=== PATIENT | female | born 2000 | race Caucasian/White ===

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

== ENCOUNTER 2021-04-06 06:30 | Inpatient (IN) | payer MEDICAID, SELFPAY ==
[2021-04-06] VITALS (30 sets, daily range): BP systolic 120–150; BP diastolic 61–101; PULSE 82–116; RESP 18; TEMP 36.2–36.8; O2SAT 92–99; BMI 35.8
[2021-04-06 06:36] LABS: ROM Internal Control Test YES-OK TO RESULT pt. (Internal QC)
[2021-04-06 06:37] LABS: ROM Patient Test POSITIVE (Negative)
[2021-04-06] MEDS: Lactated Ringers 500 ML 999 ML IV (06:50)
[2021-04-06 07:13] LABS: Basophil# 0.05 X10^3/uL; Basophil% 0.3 % (0-1); Eosinophil# 0.21 X10^3/uL; Eosinophils% 1.4 % (0-5); Hematocrit 31.9 % (37-47); Hemoglobin 10.5 g/dL (12.0-15.0); Lymphocyte % 10.6 % (19-41); Mean Corp Hgb Conc 32.9 g/dL (32-36); Mean Corpuscular Hgb 29.8 pg (27.0-32.0); Mean Corpuscular Volume 90.6 fL (81-99); Monocyte# 1.14 X10^3/uL; Monocyte% 7.5 % (0-10); NRBC Flagged by Analyzer 0 % (0-5); Neutrophil # 11.98 X10^3/uL (2.7-7.7); Neutrophil % 79.4 % (47-70); Platelet Count 420 K/mm3 (150-450); RBC Distribution Width CV 12.9 % (11.6-14.6); RBC Distribution Width SD 42.1 fl (35.1-43.9); Red Blood Count 3.52 M/mm3 (4.2-5.4); White Blood Count 15.1 K/mm3 (4.4-11.0)
[2021-04-06 07:27] LABS: Bacteria 0 SEEN /hpf (None Seen); Mucous, Urine 0 SEEN /hpf (<or=2+)
[2021-04-06] MEDS: Lactated Ringers 1,000 ML 999 ML IV (07:29)
[2021-04-06 07:47] LABS: Amphetamine Urine VISTA NEGATIVE (<1000 ng/mL); Barbiturate Urine VISTA NEGATIVE (< 200 ng/mL); Benzodiazepine Urine VISTA NEGATIVE (< 200 ng/mL); Cocaine Urine VISTA NEGATIVE (< 300 ng/mL); Ecstacy Urine VISTA NEGATIVE (< 500 ng/mL); Methadone Urine VISTA NEGATIVE (< 300 ng/mL); PCP Urine VISTA NEGATIVE (< 25 ng/mL); THC Urine VISTA NEGATIVE (< 50 ng/mL); Vista UDS pH Range 6
[2021-04-06 07:50] LABS: Color, Urine Yellow (Yellow); Glucose, Dipstick Normal (Normal); Ketone-Dipstick Negative (Negative); Leukocyte Esterase-Dipstick 25 /ul (Negative); Nitrite-Dipstick Negative (Negative); Occult Blood-Urine 150 /ul (Negative); Protein-Dipstick Negative (Negative); Urine Bilirubin Dipstick Negative (Negative); Urine Clarity Sl. Cloudy (Clear); Urine Urobilinogen Normal (Normal)
[2021-04-06] MEDS: fentaNYL-bupivacaine (epidural) 100 ML BAG EPIDURAL (08:00)
[2021-04-06 08:10] LABS: White Blood Cells 0-5 SEEN /hpf (0-5)
[2021-04-06 08:11] LABS: Red Blood Cells-Urine 0-5 SEEN /hpf (0-5); Squamous Epithelial Cells - UA 0-5 SEEN /hpf (5-10)
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
[2021-04-06] MEDS: Oxytocin 30 units/NS 500 ml 30 UNITS/500 ML IV.SOLN 334 UNITS IV (08:32)
--- NOTE | 2021-04-06 08:37 | OP.PCM_ITS ---
Assessment & Plan (1) (spontaneous vaginal delivery): (2) 40 weeks gestation of : (3) Meconium in amniotic fluid: (4) Precipitous delivery: (5) Methamphetamine use: (6) Marijuana use: Maternal Data Information ELIJAH Calculator Estimated Delivery Date Method Current WG Current Estimate 04/05/21 Manual 40w 1d US complete d around 24 weeks gestation Final ELIJAH: 04/05/21 Gestational age: 40.1 Vaginal Delivery Maternal Presentation Maternal Presentation: Active Labor and Spontaneous Rupture of Membranes Maternal Presentation: Patient is a at 40.1 weeks gestation that presents with spontaneous rupture of membranes around 0200. Patient reports painful contractions starting around 0400. Positive movement.Patient has had very limited care. Operative Information Date of Procedure: 04/06/21 Pre-Operative Diagnosis: Term gestation, SROM, Active labor, GBS unknown, poor care Post-Operative Diagnosis: Meconium fluid, precipitous delivery, live female Type of Anesthesia: Epidural Estimated Blood Loss: 200 Time of Delivery: 08:28 Findings Description of Procedure: Patient quickly began feeling pressure upon arrival to unit. Forebag ruptured for thick meconium. Patient complete dilation and bearing down with contractions. head delivered with minimal maternal effort followed quickly by anterior then posterior shoulders and remainder of body. Infant placed on maternal abdomen and technical marketing engineer requested cord to be clamped and cut. attended to by technical marketing engineer and nursery nurse. began to cry and was able to remain skin to skin with patient. Pitocin IV was started for active management of the third stage of labor. Placenta delivered spontaneously and intact. Cord blood collected from 3 vessel cord. After inspection it was noted there were no vaginal or perineal lacerations. EBL 200 cc. APGARS 8/9. Infant and mother bonding at this time. Dr. Daley notified of delivery. Presentation: Vertex Amniotic Membrane Rupture Type: Spontaneous (SROM 0200 clear fluid- AROM forebag for thick meconium ) Time of Membrane Rupture: 0200- Amniotic Fluid Description: Thick meconium Placental Delivery Description: Spontaneous Placenta Disposition: [facility] Cord Vessel Description: 3 Vessels Cord Entanglement: None Infant A Gender: Female (1 minute): 8 (5 minute): 9 Delayed Cord Clamping: No Post Vaginal Delivery Medications Given After Delivery: IV Pitocin Episiotomy Description: None Laceration: None Complication Complications: None Admit VTE Documentation VTE Present on Admission: No
[2021-04-06 08:41] LABS: Rubella IgG Reactive (Nonreactive); Syphilis Antibodies Non-reactive
[2021-04-06 09:00] LABS: HIV - WCH Non-Reactive (Nonreactive); Hepatitis B Surface Antigen Non-Reactive (Nonreactive); Hepatitis C Antibody Non-Reactive (Nonreactive)
[2021-04-06 11:08] LABS: Chlamydia Trachomatis by PCR Negative (Negative); Neisserai gonorrhoeae by PCR Negative (Negative); Probe Check PASS; Sample Adequacy Control PASS; Specimen Processing Control PASS
--- NOTE | 2021-04-06 11:20 | NURSING ---
At 10:50, pt bladder again distended with uterus right of midline. Discussed again with pt need for straight catheritization since she was only able to void small amount. Pt now agrees to procedure. 900cc clear urine obtained. Uterus returned to midline and bleeding small. Will continue to monitor.
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
[2021-04-06 13:56] LABS: Group B Strep DNA By PCR POSITIVE (Negative); Probe Check PASS
--- NOTE | 2021-04-06 16:04 | NURSING ---
:Pt states she voided, but did not measure and flushed the toilet. Instructed on importance of measuring.
--- NOTE | 2021-04-06 17:00 | CASEMGMT ---
Social Work Labor and Delivery Unit Referral to [facility] ([facility]). Spoke with Carolina in the intake department ([phone], extension [phone]) regarding concern for substance exposed infant in utero, as well as active involvement with said agency for older child. Brief maternal and histories provided. Received notice that [facility] is filing for emergency custody of , with ongoing worker Israel Head and end worker Shivam Samson working on this case. Spoke with Shivam from [facility] and [facility] was granted emergency custody of the baby. Updated security and nursing staff of MOB's impending notification of custody status of baby. Shivam to hospital to serve mother of baby (MOB), Aleisha Rodriguez, with court documents. Copy of court order placed on baby's chart. This mortgage loan underwriter, along with Shivam and [facility] Israel Head met with the MOB. MOB given opportunity to ask questions regarding court documents. It was reviewed with MOB that MOB unable to have baby in room with MOB unless supervision being provided. After [facility] Shivam Samson left unit, this mortgage loan underwriter met with MOB again to check on how MOB is doing. Israel remains present. This mortgage loan underwriter and Israel spoke with MOB. MOB tearful and reports that does not want to stay in the hospital another night if can't have baby in room with the MOB. This mortgage loan underwriter informed MOB that hospital staff could likely provide some supervised visits, but cannot guarantee how many times or for how long. MOB reports that just wants to leave today. MOB asked the [facility] worker if can help with transportation home. [facility] Israel agreed to help with transportation. This mortgage loan underwriter updated nursing staff who will contact OB provider of MOB's desire to go home today. Emotional supporter to MOB this date. Plan: MOB to discharge home today. Baby to remain in hospital fo ALLIE monitoring, and now in emergency custody of [facility]. [facility] to follow this family in the community. MOB is aware of long-term care hearing tomorrow, as well as has an assessment at [facility] tomorrow 04.07.2021. No other services requested or indicted for MOB. MOB has resource information for home going. -CINTHIA Groves, INSPECTOR HAIRSPRING TRUING
--- NOTE | 2021-04-06 17:16 | PCM.PN.BLA ---
Progress Note Patient requesting discharge home JOVANNA. [facility] present and discussed with patient that they will be taking custody of current . Patient with intact perineum at 0829 today. Has been ambulating and voiding without difficulty. Denies any pain. Has not taken any pain medications. VS stable. Lochia stable. Patient requesting Nexplanon placement prior to discharge home. Physical Exam Const alert, oriented x3 and no apparent distress General Appearance: cooperative Orientation / Consciousness: awake Exam Limitations: no limitations HEENT normocephalic Head and Scalp: normal to inspection Eyes General Eye: normal appearance of both eyes Neck full ROM and no lymphadenopathy Lymph Lymphatic: no lymphadenopathy noted Chest inspection of chest normal Resp normal respiratory effort, normal air movement and clear to auscultation bilaterally Effort and Inspection: able to speak in complete sentences and symmetric chest movement Cardio regular rate and regular rhythm GI normal to inspection, nondistended, normoactive bowel sounds Manual OB Exam: presentation cephalic, dilated 4, effaced 80 and station 0 Amniotic Fluid: clear amniotic fluid Back/Spine normal ROM Extremity full ROM and no calf tenderness Skin no rashes or lesions noted General Skin Exam: no breakdown Neuro oriented x3 and CN's II-XII intact bilaterally Psych mental status grossly normal and thought process normal Assessment & Plan Assessment/Plan (1) Precipitous delivery: (2) (spontaneous vaginal delivery): PLAN: PPD #1 , intact perineum Routine care Desires Nexplanon insertion now Discharge home with follow up in office
--- NOTE | 2021-04-06 17:25 | PCM.OP.PRO ---
Assessment & Plan Assessment/Plan (1) Insertion of Nexplanon: Procedure Report Date of Procedure: 04/06/21 Consent signed. Nexplanon inserted without difficulty in left arm. Steri strips and pressure dressing placed. Instructions for follow up verbalized to patient. Card given.
[2021-04-06] MEDS: Etonogestrel 68 MG IMPLANT SC (17:45)
--- NOTE | 2021-04-06 17:51 | DCINST_ITS ---
Discharge Instructions Diet Discharge Diet: No restrictions Activity Discharge Activity: No Restrictions May resume sexual activity in: 6-8 weeks Weight Bearing Status: Weight bearing as tolerated Dressing / Incision Call your doctor if you observe: Fever of 101 or Higher, Inability to urinate, Using more than one pad per hour, Shortness of breath, Chest pain, Calf discomfort and Uncontrolled pain Follow Up Care Please Follow Up With: Shaye Mcleod CNM When: 2 weeks virtual visit/ 6 weeks in office Test Results: Test results from this visit will be discussed in further detail at your follow-up appointment, if applicable. Discharge Plan Admission Admit Date/Time: 04/06/21 06:30 Attending Provider: Shaye Mcleod Primary Care Provider: Care Physician,No Primary Instructions Patient Instructions: After a Vaginal Discharge Orders/Prescriptions Prescriptions: No Action NK RF: 0 Referrals / Follow Up: Shaye Mcleod CNM [Certified Nurse Certified Executive Chef] - Care Physician,No Primary [Primary Care Provider] - Disposition Disposition (needs filled in before D/C Order can be placed): Home, self care
== END 2021-04-06 18:18 | disposition home or self-care (01) | DRG 560 ==
LOC: WPOUT 06:34 → WP 06:34
PROVIDERS: Obstetrics & Gynecology; Admitting Provider Advanced Practice Midwife; Referring Provider Advanced Practice Midwife; Visit Provider Advanced Practice Midwife
DX: O42.02 Full-term premature rupture of membranes, onset of labor within 24 hours of rupture (principal); O62.3 Precipitate labor; O77.0 Labor and delivery complicated by meconium in amniotic fluid; O99.324 Drug use complicating childbirth; F15.90 Other stimulant use, unspecified, uncomplicated; F12.90 Cannabis use, unspecified, uncomplicated; O99.334 Smoking (tobacco) complicating childbirth; F17.200 Nicotine dependence, unspecified, uncomplicated; Z3A.40 40 weeks gestation of pregnancy; Z37.0 Single live birth; Z30.430 Encounter for insertion of intrauterine contraceptive device
CPT/HCPCS: 59025; 59050; 80307; 81001; 84112; 85025; 86703; 86762; 86780; 86803; 86850; 86900; 86901; 87340; 87426; 87491; 87591; 87653; 99218; J7120; G0378

== ENCOUNTER 2021-07-20 11:30 | Emergency (ER) | payer MEDICAID, SELFPAY ==
[2021-07-20 11:31] VITALS: BP 118/77; PULSE 98; RESP 16; TEMP 36.6; O2SAT 99; BMI 30.7
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
== END 2021-07-20 12:32 | disposition home or self-care (01) ==
LOC: ED 12:25
PROVIDERS: Emergency Provider Emergency Medicine
DX: J06.9 Acute upper respiratory infection, unspecified (principal); F17.210 Nicotine dependence, cigarettes, uncomplicated
CPT/HCPCS: 87426; 99282; A4216

== ENCOUNTER 2022-04-28 16:19 | Emergency (ER) | payer MEDICAID, SELFPAY ==
[2022-04-28 16:21] VITALS: BP 133/96; PULSE 114; RESP 14; TEMP 36.4; O2SAT 98; BMI 31.5
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
[2022-04-28] MEDS: Azithromycin 250 MG Tablet 1000 MG PO (16:59)
[2022-04-28] MEDS: Ceftriaxone 500 MG Vial 250 MG IM (16:59)
[2022-04-28 18:43] LABS: Chlamydia Trachomatis by PCR POSITIVE (Negative); Neisserai gonorrhoeae by PCR Positive (Negative); Probe Check PASS
== END 2022-04-28 17:17 | disposition home or self-care (01) ==
LOC: ED 16:52
PROVIDERS: Emergency Provider Emergency Medicine; Visit Provider Emergency Medicine
DX: Z20.2 Contact with and (suspected) exposure to infections with a predominantly sexual mode of transmission (principal); F32.A Depression, unspecified; F41.9 Anxiety disorder, unspecified; F17.210 Nicotine dependence, cigarettes, uncomplicated; Z79.899 Other long term (current) drug therapy
CPT/HCPCS: 87491; 87591; 96372; 99283

== ENCOUNTER 2023-04-06 12:18 | Emergency (ER) | payer MEDICAID, SELFPAY ==
[2023-04-06 12:19] VITALS: BP 128/81; PULSE 123; RESP 16; TEMP 36.8; O2SAT 100; BMI 27.8
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
--- NOTE | 2023-04-06 12:52 | CT_ITS ---
EXAM: CT THORACIC SPINE WITHOUT INTRAVENOUS CONTRAST CLINICAL INDICATION: back pain TECHNIQUE: Helically acquired images were obtained of the thoracic spine without intravenous contrast. 2D reformats were reviewed. This CT exam was performed using one or more of the following dose reduction techniques: automated exposure control, adjustment of the mA and/or kV according to patient size, and/or use of iterative reconstruction technique. COMPARISON: No relevant prior studies available. FINDINGS: VERTEBRAE: Normal. No fracture. No traumatic subluxation. No discrete lytic or blastic abnormality. Normal alignment. DISCS/SPINAL CANAL/NEURAL FORAMINA: Normal. Disc heights are preserved. VASCULATURE: Visualized thoracic aorta is not dilated. LYMPH NODES: Normal. No retroperitoneal adenopathy. LUNGS AND PLEURAL SPACES: Unremarkable as visualized. No mass. No consolidation or edema. No pleural effusion or thickening. No pneumothorax. CT/Spine Thoracic without Contras IMPRESSION: Normal CT thoracic spine without contrast. Electronically Signed: Anastacio Fan MD at 15:41 EDT ,
--- NOTE | 2023-04-06 12:52 | CT_ITS ---
EXAM: CT LUMBAR SPINE WITHOUT INTRAVENOUS CONTRAST CLINICAL INDICATION: back pain TECHNIQUE: Helically acquired images were obtained of the lumbar spine without intravenous contrast. 2D reformats were reviewed. This CT exam was performed using one or more of the following dose reduction techniques: automated exposure control, adjustment of the mA and/or kV according to patient size, and/or use of iterative reconstruction technique. COMPARISON: No relevant prior studies available. FINDINGS: VERTEBRAE: Normal. No fracture. No traumatic subluxation. No discrete lytic or blastic abnormality. Normal alignment. DISCS/SPINAL CANAL/NEURAL FORAMINA: Normal. Disc heights are preserved. No critical stenosis. VASCULATURE: Visualized abdominal aorta is not dilated. LYMPH NODES: Normal. No retroperitoneal adenopathy. CT/Spine Lumbar without Contrast IMPRESSION: Normal CT lumbar spine without contrast. Electronically Signed: Anastacio Fan MD at 15:42 EDT ,
--- NOTE | 2023-04-06 12:53 | CT_ITS ---
EXAM: CT ABDOMEN AND PELVIS WITH INTRAVENOUS CONTRAST CLINICAL INDICATION: abdominal tenderness TECHNIQUE: Helically acquired images were obtained of the abdomen and pelvis with intravenous contrast. This CT exam was performed using one or more of the following dose reduction techniques: automated exposure control, adjustment of the mA and/or kV according to patient size, and/or use of iterative reconstruction technique. CONTRAST: IV 100mL [id number] COMPARISON: No relevant prior studies available. FINDINGS: LOWER THORAX: Normal. Lung bases are clear. No cardiomegaly. No pericardial effusion. ABDOMEN: LIVER: Normal. Homogeneous. No focal mass. PANCREAS: Normal. No focal cystic or solid mass. SPLEEN: Normal. Normal size without focal cystic or solid mass. ADRENALS: Normal. No nodules. KIDNEYS AND URETERS: Focal areas of abnormal contrast enhancement within both kidneys suggestive of acute pyelonephritis. Normal renal size and position. No hydronephrosis. STOMACH AND BOWEL: Normal. No bowel distention. No focal inflammatory change. PELVIS: APPENDIX: Appendix is visualized and normal in appearance. BLADDER: Normal. REPRODUCTIVE: 2.6 cm right ovarian follicle or corpus luteum. ABDOMEN and PELVIS: INTRAPERITONEAL SPACE: Normal. No ascites or other fluid collection. No free air. BONES/JOINTS: No suspicious lytic or blastic abnormality. SOFT TISSUES: Normal. No discrete abdominal or pelvic wall hernia. VASCULATURE: Normal. Abdominal aorta is non-dilated. LYMPH NODES: Normal. No enlarged lymph nodes. CT/Abdomen/Pelvis W IV Cont ONLY IMPRESSION: Abnormal bilateral nephrogram consistent with acute pyelonephritis. Electronically Signed: Anastacio Fan MD at 15:40 EDT ,
[2023-04-06] MEDS: Ondansetron 4 MG/2 ML Vial IV (13:19)
[2023-04-06] MEDS: Ketorolac 15 MG/ML Vial IV (13:19)
[2023-04-06 13:23] LABS: Absolute Lymphocyte Count 1.25 X10^3/uL (0.83-4.51); Absolute Neutrophil Count 10.5 X10^3/uL (2.0-7.7); Basophil# 0.06 X10^3/uL; Basophil% 0.5 % (0-1); Eosinophil# 0.11 X10^3/uL; Eosinophils% 0.8 % (0-5); Hematocrit 34.7 % (37-47); Hemoglobin 11.7 g/dL (12.0-15.0); Lymphocyte # 1.25 X10^3/ul (0.83-4.51); Lymphocyte % 9.5 % (19-41); Mean Corp Hgb Conc 33.7 g/dL (32-36); Mean Corpuscular Hgb 30.8 pg (27.0-32.0); Mean Corpuscular Volume 91.3 fL (81-99); Mean Platelet Vol. 9.4 fl (6.2-12.0); Monocyte# 1.25 X10^3/uL; Monocyte% 9.5 % (0-10); NRBC Flagged by Analyzer 0 % (0-5); Neutrophil % 79.5 % (47-70); Platelet Count 299 K/mm3 (150-450); RBC Distribution Width CV 12.3 % (11.6-14.6); RBC Distribution Width SD 41.2 fl (35.1-43.9); White Blood Count 13.2 K/mm3 (4.4-11.0)
[2023-04-06 13:40] LABS: ALB/GLOB Ratio 0.7 RATIO (0.9-2.4); AST(SGOT) 17 U/L (15-37); Alanine Aminotransfer ALT/SGPT 30 U/L (13-56); Albumin, Serum 2.7 g/dL (3.2-5.0); Alkaline Phosphatase 83 U/L (45-117); Anion Gap 6 (5-15); BUN 4 mg/dL (7-18); BUN/Creat Ratio 6.7 RATIO (10-20); Calcium,Total 8.5 mg/dL (8.5-10.1); Chloride 104 mmol/L (98-107); EST Glomerular Filtration Rate 133 mL/min (>60); Est Glom Filt Rate - Afr Amer 161 mL/min (>60); Estimated Creatinine Clearance 122.69 ml/min; Glucose 114 mg/dL (74-106); Potassium 2.9 mmol/L (3.5-5.1); Protein, Total 6.7 g/dL (6.4-8.2); Sodium Level 139 mmol/L (136-145)
[2023-04-06 13:49] LABS: Lactic Acid 2.6 mmol/L (0.4-1.9)
--- NOTE | 2023-04-06 13:49 | ED.RN ---
LACTIC ACID 2.6. DR ESPARZA
[2023-04-06] MEDS: 0.9% Normal Saline 1,000 ML 999 ML IV (14:12)
[2023-04-06] MEDS: Potassium Chloride 10mEq/100mL 10 MEQ/100 ML IV.SOLN. 100 MEQ IV BOLUS (14:12)
[2023-04-06 14:16] VITALS: BP 118/87; PULSE 118; RESP 23; O2SAT 100
[2023-04-06 14:29] LABS: Magnesium 1.7 mg/dL (1.6-2.6)
[2023-04-06 14:38] LABS: Internal QC Validated? YES +Cl - CLEAR BKGD; Pregnancy, Serum, hCG Quali. NEGATIVE Negative
[2023-04-06 16:09] LABS: Bacteria 0 SEEN /hpf (None Seen); Mucous, Urine 0 SEEN /hpf (<or=2+); Red Blood Cells-Urine 0 SEEN /hpf (0-5)
[2023-04-06 16:17] LABS: Color, Urine Yellow (Yellow); Glucose, Dipstick Normal (Normal); Ketone-Dipstick Negative (Negative); Leukocyte Esterase-Dipstick 500 /ul (Negative); Nitrite-Dipstick Positive (Negative); Occult Blood-Urine 25 /ul (Negative); Protein-Dipstick 30 mg/dl (Negative); Specific Gravity, Urine 1.005 (1.002-1.030); Urine Bilirubin Dipstick Negative (Negative); Urine Clarity Sl. Cloudy (Clear); Urine Urobilinogen 1 mg/dl (Normal); Urine pH 6.5 (5.0 - 8.0)
[2023-04-06 16:44] LABS: Squamous Epithelial Cells - UA 0-5 SEEN /hpf (5-10); White Blood Cells 10-25 SEEN /hpf (0-5)
[2023-04-06] MEDS: Ceftriaxone 1 GM/50 ML BAG IV (17:08)
[2023-04-06] MEDS: Potassium Chloride Oral Soln 20 MEQ/15 ML UDC 40 MEQ PO (17:14)
[2023-04-06 17:20] LABS: Reflex Lactate? Y
== END 2023-04-06 17:18 | disposition home or self-care (01) ==
PROVIDERS: Physician Assistant; Emergency Provider Emergency Medicine; Visit Provider Emergency Medicine
DX: N12 Tubulo-interstitial nephritis, not specified as acute or chronic (principal); M54.9 Dorsalgia, unspecified; E87.6 Hypokalemia; E87.20 Acidosis, unspecified; F17.210 Nicotine dependence, cigarettes, uncomplicated
CPT/HCPCS: 72128; 72131; 74177; 80053; 81001; 83605; 83735; 84703; 85025; 87077; 87086; 87088; 87186; 96365; 96366; 96367; 96375; 99282; J7030; Q9967; A4216; J2405

== ENCOUNTER 2024-06-22 18:54 | Emergency (ER) | payer MEDICAID, SELFPAY ==
[2024-06-22 18:55] VITALS: BP 148/91; PULSE 119; RESP 16; TEMP 36.3; O2SAT 95; BMI 28.5
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
[2024-06-22] MEDS: hydrOXYzine 10 MG Tablet PO (19:28)
[2024-06-22] MEDS: predniSONE 20 MG Tablet 40 MG PO (19:28)
[2024-06-22 19:30] VITALS: BP 135/78; PULSE 105; RESP 16; TEMP 36.2; O2SAT 96
== END 2024-06-22 19:31 | disposition home or self-care (01) ==
LOC: ED 19:21
PROVIDERS: Emergency Provider Emergency Medicine; PCP Nurse Practitioner Family; Visit Provider Emergency Medicine
DX: R21 Rash and other nonspecific skin eruption (principal); F17.290 Nicotine dependence, other tobacco product, uncomplicated
CPT/HCPCS: 99283

== ENCOUNTER 2025-05-18 09:43 | Emergency (ER) | payer MEDICAID, SELFPAY ==
[2025-05-18 09:44] VITALS: BP 151/83; PULSE 105; RESP 16; TEMP 36.4; O2SAT 98; BMI 35.7
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
[2025-05-18 10:49] VITALS: BP 129/89; PULSE 67; RESP 16; TEMP 36.7; O2SAT 98
== END 2025-05-18 10:51 | disposition home or self-care (01) ==
PROVIDERS: Emergency Provider Surgery; PCP Nurse Practitioner Family; Visit Provider Surgery
DX: L03.115 Cellulitis of right lower limb (principal); F15.10 Other stimulant abuse, uncomplicated; F42.4 Excoriation (skin-picking) disorder; F17.290 Nicotine dependence, other tobacco product, uncomplicated
CPT/HCPCS: 99282

== ENCOUNTER → 2025-09-15 | Outpatient (CLI) | payer MEDICAID, SELFPAY ==
[2025-09-15 16:35] LABS: Hematocrit 39.0 % (37-47); Hemoglobin 13.0 g/dL (12.0-15.0); Immature Granulocytes Count 0.010 X10^3/uL (0.0-0.0); Mean Corp Hgb Conc 33.3 g/dL (32-36); Mean Corpuscular Volume 91.8 fL (81-99); Mean Platelet Vol. 9.8 fl (6.2-12.0); NRBC Flagged by Analyzer 0 % (0-5); Platelet Count 472 K/mm3 (150-450); RBC Distribution Width CV 12.9 % (11.6-14.6); RBC Distribution Width SD 42.8 fl (35.1-43.9); Red Blood Count 4.25 M/mm3 (4.2-5.4); White Blood Count 8.2 K/mm3 (4.4-11.0)
[2025-09-15 17:20] LABS: AST(SGOT) 16 U/L (<=31); Alanine Aminotransfer ALT/SGPT 12 U/L (<=34); Albumin, Serum 4.6 g/dL (3.5-5.0); Alkaline Phosphatase 83 U/L (35-104); Anion Gap 10 (5-15); BUN 6 mg/dL (4-19); BUN/Creat Ratio 9.2 RATIO (10-20); Calcium,Total 9.6 mg/dL (7.6-11.0); Carbon Dioxide 25.4 mmol/L (21.0-32.0); Chloride 103 mmol/L (98-108); Ferritin 62 ng/mL (22-378); Globulin 2.6 g/dL (2.2-4.2); Glucose 103 mg/dL (70-99); Potassium 3.8 mmol/L (3.3-5.1); Vitamin B12 427 pg/mL (180-914); Vitamin D,25 Hydroxy 23.8 ng/mL (30-100)
[2025-09-15 17:21] LABS: FOLATES,SERUM (FOLIC ACID) 14.30 ng/mL (4.60-34.80)
[2025-09-15 17:43] LABS: CRP < 3.00 mg/L (0.0-3.0)
[2025-09-15 17:50] LABS: Iron 62 ug/dL (50-170); Iron Binding Capacity,Total 265 ug/dL (250-450); Iron Binding Capacity,Unsat 203 ug/dL (228-428)
[2025-09-17 14:08] LABS: ANTINUCLEAR ANTIBODIES DIRECT Negative (Negative)
== END | disposition home or self-care (01) ==
LOC: VSLAB 13:37
PROVIDERS: PCP Nurse Practitioner Family; Visit Provider Nurse Practitioner Family
DX: R20.0 Anesthesia of skin (principal); R53.83 Other fatigue
CPT/HCPCS: 36415; 80053; 82306; 82607; 82728; 82746; 83540; 83550; 84439; 84443; 85025; 85652; 86038; 86140; 86431

== ENCOUNTER → 2025-10-28 | Outpatient (CLI) | payer MEDICAID, SELFPAY ==
--- NOTE | 2025-10-28 14:47 | NEURO ---
NCS and/or EMG Patient Report Ordering Doctor: Jeanette Baer DATE OF SERVICE: 10/28/25 Aleisha presents for electrodiagnostic testing of the upper limbs. She has numbness and tingling in both hands. Electrodiagnostic Findings: Median motor nerve demonstrates normal distal latency, amplitude and conduction velocity bilaterally. Ulnar motor response within normal limits bilaterally. Normal median and ulnar F?waves. Sensory responses are normal. Needle EMG testing was performed in the upper limbs. All muscles tested showed no evidence of denervation with normal motor unit action potentials. Electrodiagnostic impression: This is a normal electrodiagnostic study of the upper limbs. There is no electrodiagnostic evidence for peripheral neuropathy, including carpal tunnel or cubital tunnel syndrome. There is no electrodiagnostic evidence for cervical radiculopathy. Multi Select Codes Neurology Neurology Interp Codes: 07767-25 Musc test done w/n test comp (interp) (2) and 22934-11 Nrv cndj test 13/> studies (interp)
== END | disposition home or self-care (01) ==
LOC: PSN 13:32
PROVIDERS: PCP Nurse Practitioner Family; Referring Provider Nurse Practitioner Family; Visit Provider Nurse Practitioner Family
DX: R20.0 Anesthesia of skin (principal)
CPT/HCPCS: 95886; 95913